=== PATIENT | male | born 2005 | race Caucasian/White ===

== ENCOUNTER 2024-05-23 16:38 | Emergency (ER) | payer OTHER, SELFPAY ==
[2024-05-23 16:54] VITALS: BP 133/75
--- NOTE | 2024-05-23 17:03 | ED.GENMED ---
ED Provider Triage
-
Patient seen by provider in Triage?: Seen in Triage
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
here with r flank pain to back and abdomen and down leg for a few days
was worse, then got better, then got worse again
no fever/chills/urinary symptoms, nausea, vomiting diarrhe
atook aleve yesterday no relief
went to and had xray
A medical screening examination has been initiated by a qualified medical provider. Based on the assessment performed at this time, it has been determined that an emergent medical condition may exist and the patient has been informed that further
medical evaluation and possible additional diagnostic testing may be needed.
HPI: This is a medical evaluation conducted in person to initiate diagnostic evaluation and provide initial therapeutics. Please see further documentation by the treating clinician.
GENERAL: Alert , in no apparent distress
ENT: No visible abnormalities
LUNGS: No acute respiratory distress
NEUROLOGICAL: Alert and oriented
SKIN: Skin intact. No visible changes.
MUSCULOSKELETAL: Moving extremities normally
PSYCH: Normal and appropriate interaction.
Will evaluate with labs and a urine, defer testing to provider
History of Present Illness
General
Chief Complaint: Abdominal Pain
Source: patient
Exam Limitations: none
Time Seen by Provider: 05/23/24 18:11
Nursing documentation reviewed up to this point in time: agreed with
History of Present Illness
History of Present Illness:
pt is a 18 y/o M here for R sided back pain
pt says it started 2-3 days ago. no obvious trauma but does lift a lot
pain is worse with bending and movement
he has not had fever, nausea, vomiting, diarrhea, chills
he went to and they did an xray of his abdomen and it as normal
he was told that if the pain didn't go away in 24 hours to come in for appe r/o
he has never had abd pain but it is in his right lateral lower back/hip region
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
Past History
Past History
ED Past Medical History: Other (tubulointerstitial nephritis and uveitis syndrome, clear)
Social History
Tobacco: Non-smoker
Alcohol: None
Drug: None
Personal: Single
Living: with family
Employment: Employed
Review of Systems
Review of Systems
Allergies reviewed?: Yes
All Other Systems: Not applicable
Phy Exam
Physical Exam
Physical Exam:
GENERAL: Alert , in no apparent distress, comfortable at rest
HEAD: NCAT
CARDIAC: Regular rate and rhythm, no edema
LUNGS: Clear breath sounds bilaterally, no acute respiratory distress, no wheezes/rales/rhonchi
ABDOMEN: Soft obese, no McBurney's point tenderness, without focal tenderness, no r/g, no cvat, normal bowel sounds, nondistended
NEUROLOGICAL: Alert and oriented, no focal neuro deficits, CN intact, 5/5 strength, sensation intact, ambulation slight limp left leg
SKIN: Warm and dry, no rash
MUSCULOSKELETAL: No edema, well perfused. Normal inspection of the right hip and right leg
Patient has tenderness to the palpation of the PSIS and just above it on the right side, there is no rash or skin changes, able to fully passively flex the hip, has some pain with internal and external rotation of the right hip
Back: No midline tenderness, mild dextroscoliosis,
negative straight leg raise Bilaterally
PSYCH: Normal and appropriate interaction.
Course
Orders/Labs/Results
Orders:
Orders
05/23/24 17:09
Complete Blood Count/With Diff Urgent
Comprehensive Metabolic Panel Urgent
Lipase Urgent
Urinalysis Reflex To Culture Urgent
Date Specimen was Collected: 05/23/24
Time Specimen was Collected: 16:59
05/23/24 17:09
05/23/24 17:09
Vital Signs
Initial and Last Documented VS:
Initial Vital Signs
Temp Pulse Resp BP Pulse Ox
36.9 C 84 18 133/75 98
05/23/24 16:54 05/23/24 16:54 05/23/24 16:54 05/23/24 16:54 05/23/24 16:54
Last Documented Vital Signs
Temp Pulse Resp BP Pulse Ox
36.9 C 84 18 133/75 98
05/23/24 16:54 05/23/24 16:54 05/23/24 16:54 05/23/24 16:54 05/23/24 16:54
MDM/Problems Addressed
Differential Diagnosis Includes:
Hip pain, back pain, musculoskeletal cause, hip strain
MDM/Problems Addressed:
18-year-old male who presents for right sided back pain which wraps around to his side slightly on the right side but not fully into his abdomen for the last 2 to 3 days. There is no injury. It is worse with movement like flexion and twisting. It
is better at rest. He did try Aleve once yesterday. Urgent care and they were concerned about possible appendicitis though the patient says he has no abdominal pain. Patient has no urinary issues. He previously had tubulointerstitial nephritis
but was cleared by [facility]. He has no chronic kidney disease. On exam he is extremely well-appearing, afebrile, with no abdominal tenderness. He is normal skin inspection and tenderness just above the PSIS on the right side in the back. The pain is
worse with hip flexion and rotation. He has a very reassuring workup with a normal white count and negative UA. I do not suspect that this is appendicitis. He will be given precautions but I anticipate this will be improved with NSAIDs because it
is likely a musculoskeletal cause. Return precautions
*Critical Care Note
Total Time (30-74mins, 75-104mins- exclusive of procedures): Not Applicable
ED Attending Note
-
Portions of this chart may have been created with voice recognition software.� Occasional wrong word or��sound alike� substitutions may have occurred due to the inherent limitations of voice recognition software.
Discharge Plan
Departure
Patient Disposition: Home (Routine Discharge)
Date of Disposition: 05/23/24
Time of Disposition: 18:17
Patient with high blood pressure during this ER visit?: No
Covid-19: Not Applicable
Discharge Problem:
Back pain
Instructions: Low Back Pain (DC)
Referrals:
Tunde Conde MD [Family Provider] - Follow up in 2-3 days
Activity Restrictions/Additional Instructions:
I believe the cause of this pain is likely musculoskeletal. It could be the muscle just above your hip bone on the right side. Try Aleve twice a day with food for 3 to 5 days in a row for inflammation. You can apply heat or ice to the area.
Watch for skin changes and return for a rash. You do not have any abdominal tenderness and you have a normal white blood cell count with no fever suggesting this is not appendicitis. Should you develop a fever or abdominal pain you need to return.
Otherwise limit your lifting for the next day or 2 until the pain is better. Return for any concerns
Interventions
Interventions:
*Risk Screen - Suicide Last Done: 05/23/24 17:37
*General Assessment Last Done: 05/23/24 17:37
*Neglect/Abuse Screening Last Done: 05/23/24 17:37
ED- Fall Risk Assessment Last Done: 05/23/24 17:40
*ED COVID-19 Vaccine History Last Done: 05/23/24 16:58
MR-Iqjvme-Igpirtqylr Assessment Last Done: 05/23/24 17:38
Discharge Date and Time
Print Language: GRENADIAN
[2024-05-23 17:21] LABS: % Basophils 0.4 % (0-2); % Eosinophils 1.3 % (0-6); % Immature Granulocytes 0.3 % (0-0.5); % Lymphocytes 29.8 % (20.5-51.1); % Monocytes 6.7 % (1.7-9.3); % Neutrophils 61.5 % (42.2-75.2); Absolute Eosinophils 0.1 10^3/uL (0-0.7); Absolute Lymphocytes 2.8 10^3/uL (1.2-3.4); Absolute Monocytes 0.6 10^3/uL (0.1-0.6); Absolute Neutrophils 5.8 10^3/uL (1.4-6.5); Hemoglobin 17.3 g/dL (13.0-18.0); Mean Corp Hgb Conc. 34.6 g/dL (33.0-37.0); Mean Corpuscular Hgb 29.9 pg (27.0-31.0); Mean Corpuscular Volume 86.4 fL (80.0-94.0); Nucleated Red Blood Cells % 0 % (-); Platelet Count 333 10^3/uL (130-400); Red Blood Cell Count 5.79 10^6/uL (4.70-6.10); Red Cell Dist. Width 12.2 % (11.5-14.5); White Blood Cell Count 9.5 10^3/uL (4.8-10.8)
[2024-05-23 17:25] LABS: Urine Albumin Negative (Neg - Trace); Urine Bilirubin Negative (Negative); Urine Character Clear (Clear); Urine Color Yellow; Urine Glucose Negative (Negative); Urine Ketone Negative (Negative); Urine Leukocyte Negative (Negative); Urine Nitrite Negative (Negative); Urine Occult Blood Negative (Negative); Urine Urobilinogen Negative (Neg - 1+)
[2024-05-23 17:36] VITALS: BMI 40.1
[2024-05-23 17:47] LABS: ALT (SGPT) 44 U/L (0-50); AST (SGOT) 24 U/L (17-59); Alkaline Phosphatase 57 U/L (38-126); Blood Urea Nitrogen 15 mg/dl (9-20); Calcium 10.1 mg/dl (8.4-10.2); Carbon Dioxide 26 mmol/L (22-30); Chloride 104 mmol/L (98-107); Estimated Creatinine Clearance > 125 ml/min; Glucose 80 mg/dl (70-99); Lipase 47 U/L (23-300); Potassium 4.1 mmol/L (3.5-5.1); Sodium 143 mmol/L (135-145); Total Bilirubin 0.5 mg/dl (0.2-1.3); Total Protein 7.9 g/dl (6.3-8.2); eGFR > 60.00
== END 2024-05-23 18:27 | disposition home or self-care (01) ==
LOC: EMR 16:38
PROVIDERS: EMERGENCY PHYSICIAN Emergency Medicine; FAMILY PHYSICIAN Family Medicine
DX: M54.9 Dorsalgia, unspecified (principal)
CPT/HCPCS: 99283; 80053; 81003; 83690; 85025